=== PATIENT | female | born 1995 | race American Indian/Alaskan Native ===

== ENCOUNTER 2018-09-16 15:30 | Emergency (ER) | payer BC ==
[2018-09-16 16:13] VITALS: BMI 24.6
--- NOTE | 2018-09-16 17:08 | ED PDOC ---
HPI: Abdomen Time Seen by Provider: 09/16/18 15:46 Chief Complaint (Nursing): Abdominal Pain Chief Complaint (Provider): Abdominal Pain History Per: Patient History/Exam Limitations: no limitations Onset/Duration Of Symptoms: Days (x2) Current Symptoms Are (Timing): Still Present Additional Complaint(s): 22 y/o female with a PMHx of irregular menstrual periods presents to the ED for evaluation of lower abdominal pain and right sided flank pain, onset 2 days ago. Patient reports pain is associated with urinary frequency, diarrhea and vomiting. Patient states diarrhea has now resolved and has had only one episode of non-bloody vomiting today. Patient states pain is worsening thus prompting today's visit. Patient additionally reports of drinking a lot of alcohol on Saturday. Otherwise, patient denies fever, diarrhea at present and vaginal discharge. Of note, patient states she is currently menstruating. PMD: non CPH Provider : 0 Para: 0 Miscarriage: 0 Past Medical History Reviewed: Historical Data, Nursing Documentation, Vital Signs Vital Signs: Last Vital Signs Temp 98.6 F 09/16/18 16:14 Pulse 74 09/16/18 16:14 Resp 16 09/16/18 16:14 BP 133/86 09/16/18 16:14 Pulse Ox 99 09/16/18 16:14 - Medical History Other PMH: Irregular Menstruation Cycles - Surgical History Surgical History: No Surg Hx - Family History Family History: States: No Known Family Hx - Social History Alcohol: Social - Home Medications Home Medications: Ambulatory Orders Medication Instructions Recorded Sulfamethoxazole/Trimethoprim 1 tab PO BID #20 tab 09/16/18 [Bactrim DS 800 mg-160 mg] - Allergies Allergies/Adverse Reactions: Allergies Allergy/AdvReac Type Severity Reaction Status Date / Time peanut Allergy RASH Verified 09/16/18 16:12 Review of Systems ROS Statement: Except As Marked, All Systems Reviewed And Found Negative Constitutional: Negative for: Fever Gastrointestinal: Positive for: Vomiting, Abdominal Pain, Diarrhea Genitourinary Female: Positive for: Frequency. Negative for: Vaginal Discharge Musculoskeletal: Positive for: Back Pain Physical Exam - Reviewed Nursing Documentation Reviewed: Yes Vital Signs Reviewed: Yes - Physical Exam Appears: Positive for: No Acute Distress Head Exam: Positive for: ATRAUMATIC, NORMOCEPHALIC Skin: Positive for: Normal Color, Warm, Dry Eye Exam: Positive for: Normal appearance, EOMI, PERRL Neck: Positive for: Normal, Painless ROM Cardiovascular/Chest: Positive for: Regular Rate, Rhythm. Negative for: Murmur Respiratory: Positive for: Normal Breath Sounds. Negative for: Respiratory Distress Gastrointestinal/Abdominal: Positive for: Tenderness (suprapubic tenderness) Back: Positive for: Normal Inspection. Negative for: L CVA Tenderness, R CVA Tenderness Extremity: Positive for: Normal ROM. Negative for: Deformity Neurologic/Psych: Positive for: Alert, Oriented. Negative for: Motor/Sensory Deficits - Laboratory Results Result Diagrams: 09/16/18 18:14 09/16/18 18:14 - ECG O2 Sat by Pulse Oximetry: 99 (RA) Pulse Ox Interpretation: Normal - Progress Re-evaluation Time: 22:36 Condition: Re-examined, Improved Medical Decision Making Medical Decision Making: Time: 1707 Impression: Abdominal pain and right flank pain Differentials include but not limited to , UTI, kidney stones and gastroenteritis. Plan: -- CT Abd/Pelvis IV Contrast -- CMP -- Lipase -- ED Urine -- ED Urine Dipstick -- CBC with Differentials -- Urine C&S -- Urinalysis Time: 1935 CT RESULTS FINDINGS: LUNG BASES: The lung bases appear clear. No pleural effusions are seen. LIVER: Unremarkable. GALLBLADDER AND BILE DUCTS: The gallbladder appears within normal limits. No radioopaque gallstones are seen. No biliary ductal dilatation is evident. PANCREAS: Unremarkable. SPLEEN: Unremarkable. ADRENAL GLANDS: Unremarkable. KIDNEYS, URETERS, AND BLADDER: The right ureter is mildly dilated with hyperenhancing wall and adjacent inflammatory stranding throughout its course consistent with ureteritis. The kidneys appear within normal limits. There is no left hydronephrosis or hydroureter. No urinary calculi are seen. STOMACH AND BOWEL: Thick walled fluid filled duodenum and loops of jejunum as well as ileum compatible with enteritis. Infectious and inflammatory etiologies are considered. APPENDIX: No evidence of acute appendicitis on CT examination. PERITONEUM: No free fluid. No free air. LYMPH NODES: No lymphadenopathy is evident. REPRODUCTIVE: Unremarkable as visualized. VASCULATURE: No evidence of abdominal aortic aneurysm. BONES: No aggressive appearing osseous lesion. No acute osseous pathology evident. IMPRESSION: 1. Enteritis. Infectious and inflammatory etiologies are considered. 2. Right ureteritis, likely of infectious origin. No urinary calculi are seen. Electronically signed on Sep 16, 2018 7:36:16 PM EST by: Lincoln Ontiveros M.D., MBA Certified By ABR & CBC[employer] Fellowship Trained MRI and CT Specialist Scribe Attestation: Documented by Tra Leggett, acting as a scribe for Kiana Iqbal MD. Provider Scribe Attestation: All medical record entries made by the Scribe were at my direction and personally dictated by me. I have reviewed the chart and agree that the record accurately reflects my personal performance of the history, physical exam, medical decision making, and the department course for this patient. I have also personally directed, reviewed, and agree with the discharge instructions and disposition. Disposition - Clinical Impression Clinical Impression: Pyelonephritis - Patient ED Disposition Is Patient to be Admitted: No Doctor Will See Patient In The: Office Counseled Patient/Family Regarding: Studies Performed, Diagnosis, Need For F ollowup - Disposition Referrals: [facility] [Outside] Disposition: Routine/Home Disposition Time: 22:37 Condition: GOOD Additional Instructions: YANA MAE, thank you for letting us take care of you today. Your provider was Kiana Iqbal MD and you were treated for BACK PAIN. The emergency medical care you received today was directed at your acute symptoms. If you were prescribed any medication, please fill it and take as directed. It may take several days for your symptoms to resolve. Return to the Emergency Department if your symptoms worsen, do not improve, or if you have any other problems. Please contact your doctor or call one of the physicians/clinics you have been referred to that are listed on the Patient Visit Information form that is included in your discharge packet. Bring any paperwork you were given at discharge with you along with any medications you are taking to your follow up visit. Our treatment cannot replace ongoing medical care by a primary care provider outside of the emergency department. Thank you for allowing the [facility] team to be part of your care today. If you had an X-Ray or CT scan: A Radiologist will review the ED reading if any change in treatment is needed we will contact you. If you had a blood, urine, or wound culture: It will take several days for the results, if any change in treatment is needed we will contact you. If you had an STI test: It will take 48 hours for the results. Please call after 1 week if you have not heard back. Prescriptions: Sulfamethoxazole/Trimethoprim [Bactrim DS 800 mg-160 mg] 1 tab PO BID #20 tab Instructions: Urinary Tract Infections in Adults Forms: [employer] (Vincent[employer])
[2018-09-16 17:27] LABS: SQUAMOUS EPITHIAL 5 /hpf (0-5); URINE BACTERIA MOD (<OCC); URINE BILIRUBIN NEGATIVE (NEGATIVE); URINE BLOOD LARGE (NEGATIVE); URINE CLARITY CLOUDY (Clear); URINE COLOR RED (YELLOW); URINE GLUCOSE (UA) NEG (NEGATIVE); URINE LEUKOCYTE ESTERASE MOD Leu/uL (Negative); URINE PROTEIN 100 mg/dL (NEGATIVE); URINE UROBILINOGEN 0.2-1.0 mg/dL (0.2-1.0)
[2018-09-16 18:17] LABS: BASO # 0.1 K/uL (0.0-0.2); BASO % 0.6 % (0.0-2.0); EOS # 0.1 K/uL (0.0-0.7); EOS % 0.7 % (0.0-4.0); HEMOGLOBIN 12.6 g/dL (12.0-16.0); LYMPH # 1.9 K/uL (1.0-4.3); LYMPH % 12.9 % (20.0-40.0); MEAN CELL VOLUME 78.1 fl (81.0-99.0); MEAN CORPUSCULAR HEMOGLOBIN 26.2 pg (27.0-31.0); MEAN CORPUSCULAR HGB CONC 33.6 g/dL (33.0-37.0); MEAN PLATELET VOLUME 6.9 fl (7.2-11.7); MONO # 1.2 K/uL (0.0-0.8); MONO % 8.4 % (0.0-10.0); NEUT # 11.3 K/uL (1.8-7.0); NEUT % 77.4 % (50.0-75.0); NRBC % 0.1 % (0.0-0.0); RBC 4.79 Mil/uL (3.80-5.20); RED CELL DISTRIBUTION WIDTH 14.3 % (11.5-14.5); WHITE BLOOD COUNT 14.6 K/uL (4.8-10.8)
[2018-09-16 18:27] LABS: ALB/GLOB RATIO 1.1 (1.0-2.1)
[2018-09-16] MEDS ORDERED: Iohexol 300 100 ML IJ ONE (18:27)
[2018-09-16] MEDS ORDERED: Sodium Chloride 0.9% 50 ML IV ONE (18:27)
[2018-09-16 18:45] LABS: ALT/SGPT 24 U/L (9-52); AST/SGOT 30 U/L (14-36); BLOOD UREA NITROGEN 7 mg/dl (7-17); CALCIUM 9.1 mg/dL (8.4-10.2); GFR NON-AFRICAN AMERICAN > 60; LIPASE 75 U/L (23-300)
[2018-09-16] MEDS ORDERED: cefTRIAXone (Rocephin) 1 gm Inj ONE (19:59)
[2018-09-16 22:54] VITALS: BP 113/72; PULSE 76; RESP 16; TEMP 98.7; O2SAT 98
--- NOTE | 2018-09-17 11:24 | CT ---
Date of service: 09/16/2018 PROCEDURE: CT Abdomen and Pelvis with contrast HISTORY: right flank pain UTI COMPARISON: None. TECHNIQUE: Contrast dose: 90 cc Omnipaque 300 Radiation dose: Total exam DLP = 270.5 mGy-cm. This CT exam was performed using one or more of the following dose reduction techniques: Automated exposure control, adjustment of the mA and/or kV according to patient size, and/or use of iterative reconstruction technique. FINDINGS: LOWER THORAX: Unremarkable. LIVER: Unremarkable. No gross lesion or ductal dilatation. GALLBLADDER AND BILE DUCTS: Unremarkable. PANCREAS: Unremarkable. No gross lesion or ductal dilatation. SPLEEN: Unremarkable. ADRENALS: Unremarkable. No mass. KIDNEYS AND URETERS: No hydronephrosis. No solid mass. The right intra to extrarenal renal pelvis is prominent with some mild enhancement here as well as right ureteral urothelial mild enhancement-compatible with a ureteritis. History does state right flank pain and a urinary tract infection. The right renal parenchymal enhancement appears unremarkable. This postcontrast enhanced study no gross calculi appreciated. VASCULATURE: Unremarkable. No aortic aneurysm. No aortic atherosclerotic calcification or mural plaque present. BOWEL: The 2nd portion the duodenum wall has circumferential minimal prominence is not particularly distended-mild duodenitis here is 1 consideration. Similarly there is borderline prominence and some possible circumferential mural thickening of the left small-bowel/jejunal loops--an enteritis here is a consideration. No obstruction. APPENDIX: Normal appendix. PERITONEUM: Small amount of free fluid in the cul-de-sac noted.-not an uncommon finding in a female patient of this age group. No free air. LYMPH NODES: Unremarkable. No enlarged lymph nodes. BLADDER: Unremarkable. REPRODUCTIVE: The uterus is unremarkable. The right ovary appears more anterior and slightly more superior than the left ovary. Each ovary appears minimally prominent may relate to follicular changes and/or variant edema. These findings are not relieved to be pathologic but likely physiologic. Correlate clinically. BONES: No acute fracture. OTHER FINDINGS: None. IMPRESSION: Right intra extra renal mild pelviectasis with mild right urothelial enhancement the findings are compatible with a right ureteral right pelviuretritis compatible with patient's history of UTI. No masses or abscess is seen. No gross obstructing calculus apparent on this postcontrast enhanced study. Possible duodenitis/enteritis nonspecific. No bowel obstruction or suspect lymphadenopathy noted. Correlate clinically Other findings as above. Concordant results (preliminary interpretation) provided by [facility].
== END 2018-09-16 22:55 | disposition home or self-care (01) ==
LOC: H.ER 15:30
DX: N12 Tubulo-interstitial nephritis, not specified as acute or chronic (principal)
CPT/HCPCS: 74177; 80053; 81003; 81025; 83690; 85025; 87040; 87086; 87181; 96374; 99283; J0696; J1885; Q9967

== ENCOUNTER 2019-02-05 10:41 | Emergency (ER) | payer BC ==
[2019-02-05 10:42] VITALS: BMI 24.6
[2019-02-05 11:18] VITALS: BP 123/81; PULSE 68; RESP 16; TEMP 98; O2SAT 98
[2019-02-05] MEDS ORDERED: Sodium Chloride 0.9% 1,000 ML IV STA (11:36)
[2019-02-05] MEDS ORDERED: Albuterol-Ipratrop 3 mg / 0.5 (3 ml) UD INH STA (11:36)
[2019-02-05] MEDS ORDERED: Albuterol-Ipratrop 3 mg / 0.5 (3 ml) UD ONE (12:10)
[2019-02-05 12:13] LABS: BASO % 0.4 % (0.0-2.0); EOS # 0.1 K/uL (0.0-0.7); EOS % 0.8 % (0.0-4.0); HEMOGLOBIN 11.7 g/dL (12.0-16.0); LYMPH # 1.8 K/uL (1.0-4.3); MEAN CELL VOLUME 77.9 fl (81.0-99.0); MEAN CORPUSCULAR HEMOGLOBIN 26.1 pg (27.0-31.0); MEAN CORPUSCULAR HGB CONC 33.5 g/dL (33.0-37.0); MEAN PLATELET VOLUME 7.3 fl (7.2-11.7); MONO # 0.7 K/uL (0.0-0.8); MONO % 6.5 % (0.0-10.0); NEUT # 8.4 K/uL (1.8-7.0); NEUT % 76.3 % (50.0-75.0); RBC 4.48 Mil/uL (3.80-5.20); RED CELL DISTRIBUTION WIDTH 13.9 % (11.5-14.5)
[2019-02-05 12:19] LABS: ALB/GLOB RATIO 1.3 (1.0-2.1); ALBUMIN 4.2 g/dL (3.5-5.0); ALT/SGPT 24 U/L (9-52); AST/SGOT 33 U/L (14-36); BLOOD UREA NITROGEN 9 mg/dl (7-17); CALCIUM 8.5 mg/dL (8.4-10.2); GFR NON-AFRICAN AMERICAN > 60; LIPASE 56 U/L (23-300)
[2019-02-05 12:50] LABS: SQUAMOUS EPITHIAL 6 /hpf (0-5); URINE BILIRUBIN NEGATIVE (NEGATIVE); URINE BLOOD NEGATIVE (NEGATIVE); URINE CLARITY SLIGHTY-CLOUDY (Clear); URINE COLOR YELLOW (YELLOW); URINE GLUCOSE (UA) NEG (NEGATIVE); URINE LEUKOCYTE ESTERASE MOD Leu/uL (Negative); URINE PROTEIN 30 mg/dL (NEGATIVE); URINE UROBILINOGEN 0.2-1.0 mg/dL (0.2-1.0)
--- NOTE | 2019-02-05 12:57 | ED PDOC ---
HPI: Abdomen <FofanaAminata boyce - Last Filed: 02/05/19 16:29> Chief Complaint (Provider): Abdominal Pain History Per: Patient History/Exam Limitations: no limitations Onset/Duration Of Symptoms: Days (x 1) Outside of [place] travel?: No Current Symptoms Are (Timing): Still Present Quality Of Discomfort: "Pain" Associated Symptoms: Vomiting, Other (dizziness) Additional Complaint(s): 23 year old female with no significant medical history presents to the ED with vomiting, dizziness and abdominal pain. This morning, the patient developed nausea and on the way to work started to become more nauseous due to certain smells. She also reports difficulty breathing and feels as though her lungs closed up. When she arrived at work she vomited 4-5 times. Her boss saw her at work and recommended she come to the ER. Offers no other complaints. PMD: none provided <Skyla Allan - Last Filed: 02/08/19 07:44> Time Seen by Provider: 02/05/19 11:24 Chief Complaint (Nursing): GI Problem Past Medical History Vital Signs: Last Vital Signs Temp 98.0 F 02/05/19 11:05 Pulse 68 02/05/19 11:05 Resp 16 02/05/19 11:05 BP 123/81 02/05/19 11:05 Pulse Ox 98 02/05/19 13:15 <FofanaAminata Vadim - Last Filed: 02/05/19 16:29> Reviewed: Historical Data, Nursing Documentation, Vital Signs Vital Signs: Last Vital Signs Temp 98.0 F 02/05/19 11:05 Pulse 68 02/05/19 11:05 Resp 16 02/05/19 11:05 BP 123/81 02/05/19 11:05 Pulse Ox 98 02/05/19 11:05 Primary Care Provider: FAMILY PROVIDER,NO - Medical History PMH: Asthma - Surgical History Surgical History: No Surg Hx - Family History Family History: States: Unknown Family Hx <Skyla Allan Last Filed: 02/08/19 07:44> - Home Medications Home Medications: Ambulatory Orders Medication Instructions Recorded Sulfamethoxazole/Trimethoprim 1 tab PO BID #20 tab 09/16/18 [Bactrim DS 800 mg-160 mg] Dicyclomine [Bentyl] 20 mg PO QID PRN #20 tab 02/05/19 Ondansetron ODT [Zofran ODT] 1 odt PO Q6 PRN #20 odt 02/05/19 - Allergies Allergies/Adverse Reactions: Allergies Allergy/AdvReac Type Severity Reaction Status Date / Time peanut Allergy SWELLING Verified 02/05/19 11:15 Review of Systems ROS Statement: Except As Marked, All Systems Reviewed And Found Negative Respiratory: Positive for: Other (difficulty breathing, "lungs closed") Gastrointestinal: Positive for: Nausea, Vomiting, Abdominal Pain Neurological: Positive for: Dizziness <Skyla Allan - Last Filed: 02/08/19 07:44> Physical Exam - Reviewed Nursing Documentation Reviewed: Yes Vital Signs Reviewed: Yes - Physical Exam Appears: Positive for: No Acute Distress Head Exam: Positive for: ATRAUMATIC, NORMAL INSPECTION, NORMOCEPHALIC Skin: Positive for: Normal Color, Warm, Dry Eye Exam: Positive for: EOMI, Normal appearance, PERRL Neck: Positive for: Normal, Painless ROM, Supple Cardiovascular/Chest: Positive for: Regular Rate, Rhythm. Negative for: Murmur Respiratory: Positive for: Decreased Breath Sounds (decreased air entry bilaterally). Negative for: Wheezing, Respiratory Distress Gastrointestinal/Abdominal: Positive for: Tenderness (suprapubic and mild RLQ). Negative for: Other (Cordero's sign) Back: Positive for: Normal Inspection. Negative for: L CVA Tenderness, R CVA Tenderness Extremity: Positive for: Normal ROM (x 4). Negative for: Deformity Neurological/Psych: Positive for: Awake, Alert, Normal Tone, Oriented (x 3). Negative for: Motor/Sensory Deficits <Skyla Allan - Last Filed: 02/08/19 07:44> - Laboratory Results Result Diagrams: 02/05/19 11:33 02/05/19 11:33 Lab Results: Total Bilirubin 0.6 mg/dl (0.2-1.3) 02/05/19 11:33 AST 33 U/L (14-36) 02/05/19 11:33 ALT 24 U/L (9-52) 02/05/19 11:33 Alkaline Phosphatase 73 U/L (38-126) 02/05/19 11:33 Total Protein 7.4 G/DL (6.3-8.2) 02/05/19 11:33 Albumin 4.2 g/dL (3.5-5.0) 02/05/19 11:33 Globulin 3.2 gm/dL (2.2-3.9) 02/05/19 11:33 Albumin/Globulin Ratio 1.3 (1.0-2.1) 02/05/19 11:33 Lipase 56 U/L (23-300) 02/05/19 11:33 Urine Color Straw (YELLOW) 02/05/19 13:40 Urine Clarity Clear (Clear) 02/05/19 13:40 Urine pH 7.0 (5.0-8.0) 02/05/19 13:40 Ur Specific [place] 1.010 (1.003-1.030) 02/05/19 13:40 Urine Protein Negative mg/dL (NEGATIVE) 02/05/19 13:40 Urine Glucose (UA) Neg mg/dL (NEGATIVE) 02/05/19 13:40 Urine Ketones Negative mg/dL (NEGATIVE) 02/05/19 13:40 Urine Blood Negative (NEGATIVE) 02/05/19 13:40 Urine Nitrate Negative (NEGATIVE) 02/05/19 13:40 Urine Bilirubin Negative (NEGATIVE) 02/05/19 13:40 Urine Urobilinogen 0.2-1.0 mg/dL (0.2-1.0) 02/05/19 13:40 Ur Leukocyte Esterase Neg Kaia/uL (Negative) 02/05/19 13:40 Urine RBC (Auto) 1 /hpf (0-3) 02/05/19 13:40 Urine Microscopic WBC 1 /hpf (0-5) 02/05/19 13:40 Ur Squamous Epith Cells 1 /hpf (0-5) 02/05/19 13:40 <Aminata Fofana - Last Filed: 02/05/19 16:29> - Laboratory Results Result Diagrams: 02/05/19 11:33 02/05/19 11:33 Lab Results: Total Bilirubin 0.6 mg/dl (0.2-1.3) 02/05/19 11:33 AST 33 U/L (14-36) 02/05/19 11:33 ALT 24 U/L (9-52) 02/05/19 11:33 Alkaline Phosphatase 73 U/L (38-126) 02/05/19 11:33 Total Protein 7.4 G/DL (6.3-8.2) 02/05/19 11:33 Albumin 4.2 g/dL (3.5-5.0) 02/05/19 11:33 Globulin 3.2 gm/dL (2.2-3.9) 02/05/19 11:33 Albumin/Globulin Ratio 1.3 (1.0-2.1) 02/05/19 11:33 Lipase 56 U/L (23-300) 02/05/19 11:33 - ECG O2 Sat by Pulse Oximetry: 98 (RA) Pulse Ox Interpretation: Normal <Skyla Allan - Last Filed: 02/08/19 07:44> Medical Decision Making Medical Decision Makin:26 MDM: workup for vomiting and abdominal pain Possible UTI vs appendicitis Labs IV fluids, Nebulizer for chest tightness, Toradol and Zofran 15:00 Patient signed out to Dr. Fofana pending CT and re-evaluation. Scribe Attestation: Documented by Radha Espinosa, acting as a scribe for Skyla Allan MD. Provider Scribe Attestation: All medical record entries made by the Scribe were at my direction and personally dictated by me. I have reviewed the chart and agree that the record accurately reflects my personal performance of the history, physical exam, medical decision making, and the department course for this patient. I have also personally directed, reviewed, and agree with the discharge instructions and disposition. <Skyla Allan - Last Filed: 02/08/19 07:44> Disposition <Aminata Fofana - Last Filed: 02/05/19 16:29> - Patient ED Disposition Is Patient to be Admitted: Transfer of Care - Disposition Disposition: Transfer of Care Disposition Time: 15:00 <Skyla Allan - Last Filed: 02/08/19 07:44> - Clinical Impression Clinical Impression: Abdominal pain - Disposition Referrals: [facility] [Outside] - 02/06/19 (FOLLOWUP WITH [employer] [facility] TOMORROW FOR REEVALUATION AND FOR ASSISTANCE WITH SCHEDULING FOLLOWUP WITH A PRIMARY CARE PROVIDER.) Condition: STABLE Additional Instructions: BLAND DIET WITH PLENTY OF HYDRATING FLUIDS AND REST Prescriptions: Dicyclomine [Bentyl] 20 mg PO QID PRN #20 tab PRN Reason: abdominal pain Ondansetron ODT [Zofran ODT] 1 odt PO Q6 PRN #20 odt PRN Reason: Nausea/Vomiting Instructions: Acute Abdomen (Belly Pain), Adult (DC), Nausea and Vomiting, Adult (DC) Forms: [employer] (Japanese), [facility] ED School/Work Excuse
[2019-02-05 13:56] LABS: SQUAMOUS EPITHIAL 1 /hpf (0-5); URINE BILIRUBIN NEGATIVE (NEGATIVE); URINE BLOOD NEGATIVE (NEGATIVE); URINE CLARITY CLEAR (Clear); URINE COLOR STRAW (YELLOW); URINE GLUCOSE (UA) NEG (NEGATIVE); URINE LEUKOCYTE ESTERASE NEG Leu/uL (Negative); URINE PROTEIN NEGATIVE (NEGATIVE); URINE UROBILINOGEN 0.2-1.0 mg/dL (0.2-1.0)
[2019-02-05] MEDS ORDERED: Iohexol 300 100 ML IJ ONE (14:23)
[2019-02-05] MEDS ORDERED: Sodium Chloride 0.9% 50 ML IV ONE (14:23)
--- NOTE | 2019-02-05 15:54 | CT ---
Date of service: 02/05/2019 PROCEDURE: CT Abdomen and Pelvis with contrast HISTORY: lower abdominal pain, vomiting COMPARISON: Abdomen and pelvis CT with contrast 09/16/2018. TECHNIQUE: Following the intravenous administration of iodinated contrast material, a CT examination of the abdomen and pelvis was performed from the domes of the diaphragms to the symphysis pubis with reformatted datasets provided in axial, sagittal and coronal planes. Oral contrast was not administered as per referring physician request. Contrast dose: Omnipaque 300, 90 cc Radiation dose: Total exam DLP = 341.8 mGy-cm. This CT exam was performed using one or more of the following dose reduction techniques: Automated exposure control, adjustment of the mA and/or kV according to patient size, and/or use of iterative reconstruction technique. FINDINGS: LOWER THORAX: Unremarkable. LIVER: Unremarkable. No gross lesion or ductal dilatation. GALLBLADDER AND BILE DUCTS: Unremarkable. PANCREAS: Unremarkable. No gross lesion or ductal dilatation. SPLEEN: Unremarkable. ADRENALS: Unremarkable. No mass. KIDNEYS AND URETERS: Unremarkable. No hydronephrosis. No solid mass. Prior collects in findings are now not identified which previously suggested potential ascending UTI. VASCULATURE: Unremarkable. No aortic aneurysm. No aortic atherosclerotic calcification or mural plaque present. BOWEL: Unremarkable. No obstruction. No gross mural thickening. APPENDIX: Normal appendix. PERITONEUM: Tiny umbilical hernia contains only mesenteric fat. Remainder of the perineum is unremarkable otherwise. No free fluid. No free air. LYMPH NODES: Unremarkable. No enlarged lymph nodes. BLADDER: Unremarkable. REPRODUCTIVE: Unremarkable. BONES: No acute fracture. OTHER FINDINGS: None. IMPRESSION: Unremarkable contrast enhanced CT of the abdomen and pelvis.
--- NOTE | 2019-02-05 16:29 | ED PDOC ---
- Laboratory Results Result Diagrams: 02/05/19 11:33 02/05/19 11:33 Lab Results: Total Bilirubin 0.6 mg/dl (0.2-1.3) 02/05/19 11:33 AST 33 U/L (14-36) 02/05/19 11:33 ALT 24 U/L (9-52) 02/05/19 11:33 Alkaline Phosphatase 73 U/L (38-126) 02/05/19 11:33 Total Protein 7.4 G/DL (6.3-8.2) 02/05/19 11:33 Albumin 4.2 g/dL (3.5-5.0) 02/05/19 11:33 Globulin 3.2 gm/dL (2.2-3.9) 02/05/19 11:33 Albumin/Globulin Ratio 1.3 (1.0-2.1) 02/05/19 11:33 Lipase 56 U/L (23-300) 02/05/19 11:33 Urine Color Straw (YELLOW) 02/05/19 13:40 Urine Clarity Clear (Clear) 02/05/19 13:40 Urine pH 7.0 (5.0-8.0) 02/05/19 13:40 Ur Specific [place] 1.010 (1.003-1.030) 02/05/19 13:40 Urine Protein Negative mg/dL (NEGATIVE) 02/05/19 13:40 Urine Glucose (UA) Neg mg/dL (NEGATIVE) 02/05/19 13:40 Urine Ketones Negative mg/dL (NEGATIVE) 02/05/19 13:40 Urine Blood Negative (NEGATIVE) 02/05/19 13:40 Urine Nitrate Negative (NEGATIVE) 02/05/19 13:40 Urine Bilirubin Negative (NEGATIVE) 02/05/19 13:40 Urine Urobilinogen 0.2-1.0 mg/dL (0.2-1.0) 02/05/19 13:40 Ur Leukocyte Esterase Neg Kaia/uL (Negative) 02/05/19 13:40 Urine RBC (Auto) 1 /hpf (0-3) 02/05/19 13:40 Urine Microscopic WBC 1 /hpf (0-5) 02/05/19 13:40 Ur Squamous Epith Cells 1 /hpf (0-5) 02/05/19 13:40 - ECG O2 Sat by Pulse Oximetry: 98 (RA) Medical Decision Making Medical Decision Makin:00 Patient signed out to this provider by Dr. Allan pending CT Abdomen & Pelvis, re-evaluation and final disposition. 15:50 CT Abdomen & Pelvis FINDINGS: LOWER THORAX: Unremarkable. LIVER: Unremarkable. No gross lesion or ductal dilatation. GALLBLADDER AND BILE DUCTS: Unremarkable. PANCREAS: Unremarkable. No gross lesion or ductal dilatation. SPLEEN: Unremarkable. ADRENALS: Unremarkable. No mass. KIDNEYS AND URETERS: Unremarkable. No hydronephrosis. No solid mass. Prior collects in findings are now not identified which previously suggested potential ascending UTI. VASCULATURE: Unremarkable. No aortic aneurysm. No aortic atherosclerotic calcification or mural plaque present. BOWEL: Unremarkable. No obstruction. No gross mural thickening. APPENDIX: Normal appendix. PERITONEUM: Tiny umbilical hernia contains only mesenteric fat. Remainder of the perineum is unremarkable otherwise. No free fluid. No free air. LYMPH NODES: Unremarkable. No enlarged lymph nodes. BLADDER: Unremarkable. REPRODUCTIVE: Unremarkable. BONES: No acute fracture. OTHER FINDINGS: None. IMPRESSION: Unremarkable contrast enhanced CT of the abdomen and pelvis. 16:37 Discussed findings with patient. Patient is stable for discharge. Advised to follow a bland diet with clear fluids and follow up with PMD. ----- Scribe Attestation: Documented by Radha Espinosa, acting as a scribe for Aminata Fofana MD. Provider Scribe Attestation: All medical record entries made by the Scribe were at my direction and personally dictated by me. I have reviewed the chart and agree that the record accurately reflects my personal performance of the history, physical exam, medical decision making, and the department course for this patient. I have also personally directed, reviewed, and agree with the discharge instructions and disposition. Disposition - Clinical Impression Clinical Impression: Abdominal pain - POA Present On Arrival: None - Disposition Referrals: [facility] [Outside] - 02/06/19 (FOLLOWUP WITH [employer] TOMORROW FOR REEVALUATION AND FOR ASSISTANCE WITH SCHEDULING FOLLOWUP WITH A PRIMARY CARE PROVIDER.) Disposition: Routine/Home Disposition Time: 16:35 Condition: STABLE Additional Instructions: BLAND DIET WITH PLENTY OF HYDRATING FLUIDS AND REST Prescriptions: Dicyclomine [Bentyl] 20 mg PO QID PRN #20 tab PRN Reason: abdominal pain Ondansetron ODT [Zofran ODT] 1 odt PO Q6 PRN #20 odt PRN Reason: Nausea/Vomiting Instructions: Acute Abdomen (Belly Pain), Adult (DC), Nausea and Vomiting, Adult (DC) Forms: [employer] (Mongolian), [facility] ED School/Work Excuse
== END 2019-02-05 17:29 | disposition home or self-care (01) ==
LOC: H.ER 10:41
DX: R10.9 Unspecified abdominal pain (principal); J45.909 Unspecified asthma, uncomplicated
CPT/HCPCS: 74177; 80053; 81003; 81025; 83690; 85025; 94640; 96374; 96375; 99284; J1885; J2405; J7030; Q9967